=== PATIENT | male | born 1965 | race Hispanic/Latino ===

== ENCOUNTER 2021-10-23 09:21 | Outpatient (CLI) | payer OTHER | END 2021-10-23 09:22 | disposition home or self-care (01) | LOC: CSHWCC 09:21 | PROVIDERS: ATTEND Nurse Practitioner Family | DX: E11.621 Type 2 diabetes mellitus with foot ulcer (principal); L97.422 Non-pressure chronic ulcer of left heel and midfoot with fat layer exposed | CPT/HCPCS: 97605; 99203; G0463 ==

== ENCOUNTER 2021-10-26 14:26 | Outpatient (CLI) | payer OTHER | END 2021-10-26 14:27 | disposition home or self-care (01) | LOC: CSHWCC 14:26 | PROVIDERS: ATTEND Nurse Practitioner Family | DX: E11.621 Type 2 diabetes mellitus with foot ulcer (principal); L97.422 Non-pressure chronic ulcer of left heel and midfoot with fat layer exposed | CPT/HCPCS: 97605 ==

== ENCOUNTER 2021-10-30 08:36 | Outpatient (CLI) | END 2021-10-30 08:37 | disposition home or self-care (01) | LOC: CSHWCC 08:36 | PROVIDERS: ATTEND Nurse Practitioner Family | DX: E11.621 Type 2 diabetes mellitus with foot ulcer (principal); L97.422 Non-pressure chronic ulcer of left heel and midfoot with fat layer exposed | CPT/HCPCS: 11042; 11045; 97605 ==

== ENCOUNTER 2021-11-02 13:51 | Outpatient (CLI) | payer SELFPAY | END 2021-11-02 13:52 | disposition home or self-care (01) | LOC: CSHWCC 13:51 | PROVIDERS: ATTEND Nurse Practitioner Family | DX: E11.621 Type 2 diabetes mellitus with foot ulcer (principal); L97.422 Non-pressure chronic ulcer of left heel and midfoot with fat layer exposed | CPT/HCPCS: 97605 ==

== ENCOUNTER 2021-11-06 10:18 | Outpatient (CLI) | END 2021-11-06 10:19 | disposition home or self-care (01) | LOC: CSHWCC 10:18 | PROVIDERS: ATTEND Nurse Practitioner Family | DX: E11.621 Type 2 diabetes mellitus with foot ulcer (principal); L97.422 Non-pressure chronic ulcer of left heel and midfoot with fat layer exposed ==

== ENCOUNTER 2021-11-09 10:10 | Outpatient (CLI) | payer OTHER | END 2021-11-09 10:11 | disposition home or self-care (01) | LOC: CSHWCC 10:10 | PROVIDERS: ATTEND Nurse Practitioner Family | DX: E11.621 Type 2 diabetes mellitus with foot ulcer (principal); L97.422 Non-pressure chronic ulcer of left heel and midfoot with fat layer exposed | CPT/HCPCS: 99213; G0463 ==

== ENCOUNTER 2021-11-13 10:08 | Outpatient (CLI) | payer SELFPAY | END 2021-11-13 10:09 | disposition home or self-care (01) | LOC: CSHWCC 10:08 | PROVIDERS: ATTEND Nurse Practitioner Family | DX: E11.621 Type 2 diabetes mellitus with foot ulcer (principal); L97.422 Non-pressure chronic ulcer of left heel and midfoot with fat layer exposed ==

== ENCOUNTER 2021-11-16 10:18 | Outpatient (CLI) | payer SELFPAY | END 2021-11-16 10:19 | disposition home or self-care (01) | LOC: CSHWCC 10:18 | PROVIDERS: ATTEND Nurse Practitioner Family | DX: E11.621 Type 2 diabetes mellitus with foot ulcer (principal); L97.422 Non-pressure chronic ulcer of left heel and midfoot with fat layer exposed | CPT/HCPCS: 29581 ==

== ENCOUNTER 2021-11-17 10:25 | Outpatient (CLI) | payer SELFPAY | END 2021-11-17 10:26 | disposition home or self-care (01) | LOC: CSHWCC 10:25 | PROVIDERS: ATTEND Nurse Practitioner Family | DX: E11.621 Type 2 diabetes mellitus with foot ulcer (principal); L97.422 Non-pressure chronic ulcer of left heel and midfoot with fat layer exposed; R60.0 Localized edema ==

== ENCOUNTER 2021-11-21 14:22 | Outpatient (CLI) | payer SELFPAY | END 2021-11-21 14:23 | disposition home or self-care (01) | LOC: CSHWCC 14:22 | PROVIDERS: ATTEND Nurse Practitioner Family | DX: E11.621 Type 2 diabetes mellitus with foot ulcer (principal); L97.422 Non-pressure chronic ulcer of left heel and midfoot with fat layer exposed; R60.0 Localized edema ==

== ENCOUNTER 2021-11-24 10:14 | Outpatient (CLI) | payer SELFPAY | END 2021-11-24 10:15 | disposition home or self-care (01) | LOC: CSHWCC 10:14 | PROVIDERS: ATTEND Nurse Practitioner Family | DX: E11.621 Type 2 diabetes mellitus with foot ulcer (principal); L97.422 Non-pressure chronic ulcer of left heel and midfoot with fat layer exposed; R60.0 Localized edema ==

== ENCOUNTER 2021-11-27 12:56 | Outpatient (CLI) | payer SELFPAY | END 2021-11-27 12:57 | disposition home or self-care (01) | LOC: CSHWCC 12:56 | PROVIDERS: ATTEND Nurse Practitioner Family | DX: E11.621 Type 2 diabetes mellitus with foot ulcer (principal); L97.422 Non-pressure chronic ulcer of left heel and midfoot with fat layer exposed; R60.0 Localized edema ==

== ENCOUNTER 2021-11-30 09:13 | Outpatient (CLI) | payer SELFPAY | END 2021-11-30 09:14 | disposition home or self-care (01) | LOC: CSHWCC 09:13 | PROVIDERS: ATTEND Nurse Practitioner Family | DX: E11.621 Type 2 diabetes mellitus with foot ulcer (principal); L97.422 Non-pressure chronic ulcer of left heel and midfoot with fat layer exposed; R60.0 Localized edema ==

== ENCOUNTER 2021-12-04 14:48 | Outpatient (CLI) | payer SELFPAY | END 2021-12-04 14:49 | disposition home or self-care (01) | LOC: CSHWCC 14:48 | PROVIDERS: ATTEND Nurse Practitioner Family | DX: E11.621 Type 2 diabetes mellitus with foot ulcer (principal); L97.422 Non-pressure chronic ulcer of left heel and midfoot with fat layer exposed ==

== ENCOUNTER 2021-12-07 09:01 | Outpatient (CLI) | payer SELFPAY | END 2021-12-07 09:02 | disposition home or self-care (01) | LOC: CSHWCC 09:01 | PROVIDERS: ATTEND Nurse Practitioner Family | DX: E11.621 Type 2 diabetes mellitus with foot ulcer (principal); L97.422 Non-pressure chronic ulcer of left heel and midfoot with fat layer exposed; R60.0 Localized edema ==

== ENCOUNTER 2021-12-11 14:44 | Outpatient (CLI) | payer SELFPAY | END 2021-12-11 14:45 | disposition home or self-care (01) | LOC: CSHWCC 14:44 | PROVIDERS: ATTEND Nurse Practitioner Family | DX: E11.621 Type 2 diabetes mellitus with foot ulcer (principal); L97.422 Non-pressure chronic ulcer of left heel and midfoot with fat layer exposed; R60.0 Localized edema | CPT/HCPCS: 87070; 87077; 87186; 87205; 99213; G0463 ==

== ENCOUNTER 2021-12-14 11:26 | Outpatient (CLI) | payer SELFPAY | END 2021-12-14 11:27 | disposition home or self-care (01) | LOC: CSHWCC 11:26 | PROVIDERS: ATTEND Nurse Practitioner Family | DX: E11.621 Type 2 diabetes mellitus with foot ulcer (principal); L97.422 Non-pressure chronic ulcer of left heel and midfoot with fat layer exposed; R60.0 Localized edema | CPT/HCPCS: 99213; G0463 ==

== ENCOUNTER 2021-12-19 09:22 | Outpatient (CLI) | payer OTHER | END 2021-12-19 09:23 | disposition home or self-care (01) | LOC: CSHWCC 09:22 | PROVIDERS: ATTEND Nurse Practitioner Family | DX: E11.621 Type 2 diabetes mellitus with foot ulcer (principal); L97.422 Non-pressure chronic ulcer of left heel and midfoot with fat layer exposed; R60.0 Localized edema | CPT/HCPCS: 99213; G0463 ==

== ENCOUNTER 2021-12-22 10:23 | Outpatient (CLI) | payer SELFPAY | END 2021-12-22 10:24 | disposition home or self-care (01) | LOC: CSHWCC 10:23 | PROVIDERS: ATTEND Nurse Practitioner Family | DX: E11.621 Type 2 diabetes mellitus with foot ulcer (principal); L97.422 Non-pressure chronic ulcer of left heel and midfoot with fat layer exposed; R60.0 Localized edema | CPT/HCPCS: 99213; G0463 ==

== ENCOUNTER 2021-12-26 15:32 | Outpatient (CLI) | payer SELFPAY | END 2021-12-26 15:33 | disposition home or self-care (01) | LOC: CSHWCC 15:32 | PROVIDERS: ATTEND Nurse Practitioner Family | DX: E11.621 Type 2 diabetes mellitus with foot ulcer (principal); L97.422 Non-pressure chronic ulcer of left heel and midfoot with fat layer exposed; R60.0 Localized edema | CPT/HCPCS: 99212; G0463 ==

== ENCOUNTER 2021-12-29 11:04 | Outpatient (CLI) | payer SELFPAY | END 2021-12-29 11:05 | disposition home or self-care (01) | LOC: CSHWCC 11:04 | PROVIDERS: ATTEND Nurse Practitioner Family | DX: E11.621 Type 2 diabetes mellitus with foot ulcer (principal); L97.422 Non-pressure chronic ulcer of left heel and midfoot with fat layer exposed; R60.0 Localized edema | CPT/HCPCS: 99213; G0463 ==

== ENCOUNTER 2022-01-02 15:50 | Outpatient (CLI) | payer SELFPAY | END 2022-01-02 15:51 | disposition home or self-care (01) | LOC: CSHWCC 15:50 | PROVIDERS: ATTEND Nurse Practitioner Family | DX: E11.621 Type 2 diabetes mellitus with foot ulcer (principal); L97.422 Non-pressure chronic ulcer of left heel and midfoot with fat layer exposed; R60.0 Localized edema ==

== ENCOUNTER 2022-01-09 08:05 | Outpatient (CLI) | payer SELFPAY | END 2022-01-09 08:06 | disposition home or self-care (01) | LOC: CSHWCC 08:05 | PROVIDERS: ATTEND Nurse Practitioner Family | DX: E11.621 Type 2 diabetes mellitus with foot ulcer (principal); L97.422 Non-pressure chronic ulcer of left heel and midfoot with fat layer exposed; R60.0 Localized edema | CPT/HCPCS: 99213; G0463 ==

== ENCOUNTER 2022-01-15 11:02 | Outpatient (CLI) | payer SELFPAY | END 2022-01-15 11:03 | disposition home or self-care (01) | LOC: CSHWCC 11:02 | PROVIDERS: ATTEND Preventive Medicine Undersea and Hyperbaric Medicine | DX: E11.621 Type 2 diabetes mellitus with foot ulcer (principal); L97.422 Non-pressure chronic ulcer of left heel and midfoot with fat layer exposed; R60.0 Localized edema | CPT/HCPCS: 99213; G0463 ==

== ENCOUNTER 2022-01-29 10:41 | Outpatient (CLI) | payer SELFPAY | END 2022-01-29 10:42 | disposition home or self-care (01) | LOC: CSHWCC 10:41 | PROVIDERS: ATTEND Nurse Practitioner Family | DX: E11.621 Type 2 diabetes mellitus with foot ulcer (principal); L97.422 Non-pressure chronic ulcer of left heel and midfoot with fat layer exposed; R60.0 Localized edema | CPT/HCPCS: 99213; G0463 ==

== ENCOUNTER 2022-02-12 10:02 | Outpatient (CLI) | payer SELFPAY | END 2022-02-12 10:03 | disposition home or self-care (01) | LOC: CSHWCC 10:02 | PROVIDERS: ATTEND Preventive Medicine Undersea and Hyperbaric Medicine | DX: E11.621 Type 2 diabetes mellitus with foot ulcer (principal); L97.422 Non-pressure chronic ulcer of left heel and midfoot with fat layer exposed; R60.0 Localized edema | CPT/HCPCS: 99213; G0463 ==

== ENCOUNTER 2022-02-26 08:59 | Outpatient (CLI) | payer SELFPAY | END 2022-02-26 09:00 | disposition home or self-care (01) | LOC: CSHWCC 08:59 | PROVIDERS: ATTEND Preventive Medicine Undersea and Hyperbaric Medicine | DX: E11.621 Type 2 diabetes mellitus with foot ulcer (principal); L97.422 Non-pressure chronic ulcer of left heel and midfoot with fat layer exposed; R60.0 Localized edema | CPT/HCPCS: 99213; G0463 ==

== ENCOUNTER 2022-03-12 10:03 | Outpatient (CLI) | payer SELFPAY | END 2022-03-12 10:04 | disposition home or self-care (01) | LOC: CSHWCC 10:03 | PROVIDERS: ATTEND Nurse Practitioner Family | DX: E11.621 Type 2 diabetes mellitus with foot ulcer (principal); L97.422 Non-pressure chronic ulcer of left heel and midfoot with fat layer exposed; R60.0 Localized edema | CPT/HCPCS: 99213; G0463 ==

== ENCOUNTER 2022-03-26 09:06 | Outpatient (CLI) | payer SELFPAY | END 2022-03-26 09:07 | disposition home or self-care (01) | LOC: CSHWCC 09:06 | PROVIDERS: ATTEND Nurse Practitioner Family | DX: E11.621 Type 2 diabetes mellitus with foot ulcer (principal); L97.422 Non-pressure chronic ulcer of left heel and midfoot with fat layer exposed; R60.0 Localized edema | CPT/HCPCS: 99213; G0463 ==

== ENCOUNTER 2022-04-16 08:57 | Outpatient (CLI) | payer SELFPAY | END 2022-04-16 08:58 | disposition home or self-care (01) | LOC: CSHWCC 08:57 | PROVIDERS: ATTEND Nurse Practitioner Family | DX: E11.621 Type 2 diabetes mellitus with foot ulcer (principal); L97.422 Non-pressure chronic ulcer of left heel and midfoot with fat layer exposed; R60.0 Localized edema ==

== ENCOUNTER 2022-05-07 09:10 | Outpatient (CLI) | payer SELFPAY | END 2022-05-07 09:11 | disposition home or self-care (01) | LOC: CSHWCC 09:10 | PROVIDERS: ATTEND Nurse Practitioner Family | DX: E11.621 Type 2 diabetes mellitus with foot ulcer (principal); L97.422 Non-pressure chronic ulcer of left heel and midfoot with fat layer exposed; R60.0 Localized edema | CPT/HCPCS: 99212; G0463 ==

== ENCOUNTER 2022-11-27 15:39 | Outpatient (CLI) | payer SELFPAY | END 2022-11-27 15:40 | disposition home or self-care (01) | LOC: CSHWCC 15:39 | PROVIDERS: ATTEND Nurse Practitioner Family | DX: S91.301D Unspecified open wound, right foot, subsequent encounter (principal) | CPT/HCPCS: 97606 ==

== ENCOUNTER 2022-11-30 08:04 | Outpatient (CLI) | payer SELFPAY | END 2022-11-30 08:05 | disposition home or self-care (01) | LOC: CSHWCC 08:04 | PROVIDERS: ATTEND Nurse Practitioner Family | DX: S91.301D Unspecified open wound, right foot, subsequent encounter (principal) | CPT/HCPCS: 97606 ==

== ENCOUNTER 2022-12-04 08:32 | Outpatient (CLI) | payer SELFPAY | END 2022-12-04 08:33 | disposition home or self-care (01) | LOC: CSHWCC 08:32 | PROVIDERS: ATTEND Nurse Practitioner Family | DX: S91.301D Unspecified open wound, right foot, subsequent encounter (principal) | CPT/HCPCS: 11043; 11046; 97606 ==

== ENCOUNTER 2022-12-07 10:59 | Outpatient (CLI) | payer SELFPAY | END 2022-12-07 11:00 | disposition home or self-care (01) | LOC: CSHWCC 10:59 | PROVIDERS: ATTEND Nurse Practitioner Family | DX: S91.301D Unspecified open wound, right foot, subsequent encounter (principal); Z89.431 Acquired absence of right foot | CPT/HCPCS: 97597; 97606 ==

== ENCOUNTER 2022-12-11 08:27 | Outpatient (CLI) | payer SELFPAY | END 2022-12-11 08:28 | disposition home or self-care (01) | LOC: CSHWCC 08:27 | PROVIDERS: ATTEND Nurse Practitioner Family | DX: T87.89 Other complications of amputation stump (principal) | CPT/HCPCS: 11043 ==

== ENCOUNTER 2022-12-13 08:48 | Outpatient (CLI) | payer SELFPAY | END 2022-12-13 08:49 | disposition home or self-care (01) | LOC: CSHWCC 08:48 | PROVIDERS: ATTEND Nurse Practitioner Family | DX: S91.301D Unspecified open wound, right foot, subsequent encounter (principal) ==

== ENCOUNTER 2022-12-18 08:48 | Outpatient (CLI) | payer SELFPAY | END 2022-12-18 08:49 | disposition home or self-care (01) | LOC: CSHWCC 08:48 | PROVIDERS: ATTEND Nurse Practitioner Family | DX: T87.89 Other complications of amputation stump (principal) | CPT/HCPCS: 11043; 11046; 97606 ==

== ENCOUNTER 2022-12-21 13:03 | Outpatient (CLI) | payer SELFPAY | END 2022-12-21 13:04 | disposition home or self-care (01) | LOC: CSHWCC 13:03 | PROVIDERS: ATTEND Nurse Practitioner Family | DX: T87.89 Other complications of amputation stump (principal) | CPT/HCPCS: 97605 ==

== ENCOUNTER 2022-12-28 12:00 | Outpatient (CLI) | payer SELFPAY | END 2022-12-28 12:01 | disposition home or self-care (01) | LOC: CSHWCC 12:00 | PROVIDERS: ATTEND Nurse Practitioner Family | DX: T87.89 Other complications of amputation stump (principal) | CPT/HCPCS: 11043; 97605 ==

== ENCOUNTER 2023-01-01 10:21 | Outpatient (CLI) | payer SELFPAY | END 2023-01-01 10:22 | disposition home or self-care (01) | LOC: CSHWCC 10:21 | PROVIDERS: ATTEND Nurse Practitioner Family | DX: T87.89 Other complications of amputation stump (principal) | CPT/HCPCS: 97597; 97598; 97605 ==

== ENCOUNTER 2023-01-04 12:58 | Outpatient (CLI) | payer SELFPAY | END 2023-01-04 12:59 | disposition home or self-care (01) | LOC: CSHWCC 12:58 | PROVIDERS: ATTEND Nurse Practitioner Family | DX: T87.89 Other complications of amputation stump (principal) | CPT/HCPCS: 97597; 97605 ==

== ENCOUNTER 2023-01-07 16:28 | Outpatient (CLI) | payer SELFPAY | END 2023-01-07 16:29 | disposition home or self-care (01) | LOC: CSHWCC 16:28 | PROVIDERS: ATTEND Nurse Practitioner Family | DX: T87.89 Other complications of amputation stump (principal) | CPT/HCPCS: 97605 ==

== ENCOUNTER 2023-01-11 09:20 | Outpatient (CLI) | payer SELFPAY | END 2023-01-11 09:21 | disposition home or self-care (01) | LOC: CSHWCC 09:20 | PROVIDERS: ATTEND Nurse Practitioner Family | DX: T87.89 Other complications of amputation stump (principal) | CPT/HCPCS: 11044; 11047; 97605 ==

== ENCOUNTER 2023-01-15 14:34 | Outpatient (CLI) | payer SELFPAY | END 2023-01-15 14:35 | disposition home or self-care (01) | LOC: CSHWCC 14:34 | PROVIDERS: ATTEND Nurse Practitioner Family | DX: T87.89 Other complications of amputation stump (principal) | CPT/HCPCS: 97605 ==

== ENCOUNTER 2023-01-18 08:58 | Outpatient (CLI) | payer SELFPAY | END 2023-01-18 08:59 | disposition home or self-care (01) | LOC: CSHWCC 08:58 | PROVIDERS: ATTEND Nurse Practitioner Family | DX: T87.89 Other complications of amputation stump (principal) | CPT/HCPCS: 97605 ==

== ENCOUNTER 2023-01-22 13:07 | Outpatient (CLI) | payer SELFPAY | END 2023-01-22 13:08 | disposition home or self-care (01) | LOC: CSHWCC 13:07 | PROVIDERS: ATTEND Nurse Practitioner Family | DX: T81.89XD Other complications of procedures, not elsewhere classified, subsequent encounter (principal); S41.112D Laceration without foreign body of left upper arm, subsequent encounter; E11.621 Type 2 diabetes mellitus with foot ulcer; L97.412 Non-pressure chronic ulcer of right heel and midfoot with fat layer exposed | CPT/HCPCS: 97605 ==

== ENCOUNTER 2023-01-25 11:55 | Outpatient (CLI) | payer SELFPAY | END 2023-01-25 11:56 | disposition home or self-care (01) | LOC: CSHWCC 11:55 | PROVIDERS: ATTEND Nurse Practitioner Family | DX: T81.89XD Other complications of procedures, not elsewhere classified, subsequent encounter (principal) | CPT/HCPCS: 97605 ==

== ENCOUNTER 2023-01-29 09:59 | Outpatient (CLI) | payer SELFPAY | END 2023-01-29 10:00 | disposition home or self-care (01) | LOC: CSHWCC 09:59 | PROVIDERS: ATTEND Nurse Practitioner Family | DX: T81.89XD Other complications of procedures, not elsewhere classified, subsequent encounter (principal) | CPT/HCPCS: 11044; 11047; 97605 ==

== ENCOUNTER 2023-02-01 08:52 | Outpatient (CLI) | payer SELFPAY | END 2023-02-01 08:53 | disposition home or self-care (01) | LOC: CSHWCC 08:52 | PROVIDERS: ATTEND Nurse Practitioner Family | DX: T87.89 Other complications of amputation stump (principal); Z89.431 Acquired absence of right foot | CPT/HCPCS: 97605 ==

== ENCOUNTER 2023-02-04 10:24 | Outpatient (CLI) | payer SELFPAY | END 2023-02-04 10:25 | disposition home or self-care (01) | LOC: CSHWCC 10:24 | PROVIDERS: ATTEND Nurse Practitioner Family | DX: T81.89XD Other complications of procedures, not elsewhere classified, subsequent encounter (principal) | CPT/HCPCS: 97605 ==

== ENCOUNTER 2023-02-21 08:09 | Outpatient (CLI) | payer SELFPAY | END 2023-02-21 08:10 | disposition home or self-care (01) | LOC: CSHWCC 08:09 | PROVIDERS: ATTEND Preventive Medicine Undersea and Hyperbaric Medicine | DX: T87.89 Other complications of amputation stump (principal) | CPT/HCPCS: 97605 ==

== ENCOUNTER 2023-02-28 08:07 | Outpatient (CLI) | payer SELFPAY | END 2023-02-28 08:08 | disposition home or self-care (01) | LOC: CSHWCC 08:07 | PROVIDERS: ATTEND Physician Assistant | DX: T87.89 Other complications of amputation stump (principal) | CPT/HCPCS: 97605 ==

== ENCOUNTER 2023-03-04 08:04 | Outpatient (CLI) | payer SELFPAY | END 2023-03-04 08:05 | disposition home or self-care (01) | LOC: CSHWCC 08:04 | PROVIDERS: ATTEND Preventive Medicine Undersea and Hyperbaric Medicine | DX: T81.89XD Other complications of procedures, not elsewhere classified, subsequent encounter (principal) | CPT/HCPCS: 97605 ==

== ENCOUNTER 2023-03-07 08:36 | Outpatient (CLI) | payer SELFPAY | END 2023-03-07 08:37 | disposition home or self-care (01) | LOC: CSHWCC 08:36 | PROVIDERS: ATTEND Preventive Medicine Undersea and Hyperbaric Medicine | DX: T87.89 Other complications of amputation stump (principal) | CPT/HCPCS: 99212; G0463 ==

== ENCOUNTER 2023-03-08 08:52 | Outpatient (CLI) | payer SELFPAY | END 2023-03-08 08:53 | disposition home or self-care (01) | LOC: CSHRAD 08:52 | PROVIDERS: ATTEND Preventive Medicine Undersea and Hyperbaric Medicine | DX: T87.89 Other complications of amputation stump (principal); M85.871 Other specified disorders of bone density and structure, right ankle and foot ==

== ENCOUNTER 2023-03-11 08:14 | Outpatient (CLI) | payer SELFPAY | END 2023-03-11 08:15 | disposition home or self-care (01) | LOC: CSHWCC 08:14 | PROVIDERS: ATTEND Physician Assistant | DX: T81.89XD Other complications of procedures, not elsewhere classified, subsequent encounter (principal) | CPT/HCPCS: 99211; G0463 ==

== ENCOUNTER 2023-03-14 08:14 | Outpatient (CLI) | payer SELFPAY | END 2023-03-14 08:15 | disposition home or self-care (01) | LOC: CSHWCC 08:14 | PROVIDERS: ATTEND Physician Assistant | DX: T87.89 Other complications of amputation stump (principal); E11.21 Type 2 diabetes mellitus with diabetic nephropathy; I73.9 Peripheral vascular disease, unspecified; R93.6 Abnormal findings on diagnostic imaging of limbs | CPT/HCPCS: 97597 ==

== ENCOUNTER 2023-03-28 11:18 | Outpatient (CLI) | payer SELFPAY | END 2023-03-28 11:19 | disposition home or self-care (01) | LOC: CSHWCC 11:18 | PROVIDERS: ATTEND Physician Assistant | DX: T87.89 Other complications of amputation stump (principal); E11.21 Type 2 diabetes mellitus with diabetic nephropathy; R93.6 Abnormal findings on diagnostic imaging of limbs; I73.9 Peripheral vascular disease, unspecified | CPT/HCPCS: 97597 ==

== ENCOUNTER 2023-04-18 08:00 | Outpatient (CLI) | payer SELFPAY | END 2023-04-18 08:01 | disposition home or self-care (01) | LOC: CSHWCC 08:00 | PROVIDERS: ATTEND Preventive Medicine Undersea and Hyperbaric Medicine | DX: T87.89 Other complications of amputation stump (principal); E11.621 Type 2 diabetes mellitus with foot ulcer; L97.519 Non-pressure chronic ulcer of other part of right foot with unspecified severity; L97.529 Non-pressure chronic ulcer of other part of left foot with unspecified severity; E11.21 Type 2 diabetes mellitus with diabetic nephropathy; I73.9 Peripheral vascular disease, unspecified; R93.6 Abnormal findings on diagnostic imaging of limbs | CPT/HCPCS: 99212; G0463 ==

== ENCOUNTER 2023-05-29 09:25 | Outpatient (CLI) | payer SELFPAY | END 2023-05-29 09:26 | disposition home or self-care (01) | LOC: CSHWCC 09:25 | PROVIDERS: ATTEND Preventive Medicine Undersea and Hyperbaric Medicine | DX: T87.89 Other complications of amputation stump (principal); E11.621 Type 2 diabetes mellitus with foot ulcer; L97.509 Non-pressure chronic ulcer of other part of unspecified foot with unspecified severity; E11.21 Type 2 diabetes mellitus with diabetic nephropathy; R93.6 Abnormal findings on diagnostic imaging of limbs; I73.9 Peripheral vascular disease, unspecified | CPT/HCPCS: 99213; G0463 ==